=== PATIENT | female | born 1940 | race Caucasian/White ===

== ENCOUNTER 2020-04-28 07:25 | Outpatient (CLI) | payer OTHER, SELFPAY ==
--- NOTE | ~2020-04-28 | MM_ITS ---
EXAMINATION: MM screening jeet BI w mercedes HISTORY: Screening mammogram TECHNIQUE: Craniocaudal and mediolateral oblique 3-D tomosynthesis images were obtained and synthetic 2-D images were generated. CAD analysis was submitted and interpreted. COMPARISON: Comparison to multiple prior studies sequentially, with oldest reviewed study dated 05/20. BREAST PARENCHYMAL COMPOSITION: The breasts are heterogeneously dense, which may obscure small masses . FINDINGS: There is no evidence of suspicious mass, calcification, or architectural distortion to sugg est malignancy in either breast. There has been no suspicious interval change. IMPRESSION: 1. No mammographic evidence of malignancy. 2. Recommend routine screening mammography in one year. BI-RADS Category 1: Negative Reviewed, dictated and finalized at location A.
== END 2020-04-28 07:26 | disposition home or self-care (01) ==
PROVIDERS: PCP Emergency Medicine; Visit Provider Emergency Medicine
DX: Z12.31 Encounter for screening mammogram for malignant neoplasm of breast (principal)
CPT/HCPCS: 77063; 77067

== ENCOUNTER 2021-04-30 08:18 | Outpatient (CLI) | payer OTHER, SELFPAY ==
--- NOTE | ~2021-04-30 | MM_ITS ---
EXAMINATION: MM screening jeet BI w mercedes HISTORY: Screening mammogram TECHNIQUE: Craniocaudal and mediolateral oblique 3-D tomosynthesis images were obtained and synthetic 2-D images were generated. CAD analysis was submitted and interpreted. COMPARISON: 04/28/2020, 04/23/2019, 01/02/2018, 09/28/2016 bilateral digital screening mammogram examinatio ns BREAST PARENCHYMAL COMPOSITION: The breasts are heterogeneously dense, which may obscure small masses . FINDINGS: Scattered bilateral benign calcifications are again noted. There is no evidence of suspicio us mass, calcification, or architectural distortion to suggest malignancy in either breast. There has been no suspicious interval change. IMPRESSION: 1. No mammographic evidence of malignancy. 2. Recommend routine screening mammography in one year. BI-RADS Category 2: Benign finding(s). Reviewed, dictated and finalized at location A.
== END 2021-04-30 08:19 | disposition home or self-care (01) ==
LOC: ANHIMG 08:23
PROVIDERS: PCP Emergency Medicine; Visit Provider Emergency Medicine
DX: Z12.31 Encounter for screening mammogram for malignant neoplasm of breast (principal)
CPT/HCPCS: 77063; 77067

== ENCOUNTER 2021-08-25 10:31 | Outpatient (CLI) | payer OTHER, SELFPAY ==
--- NOTE | ~2021-08-25 | XR_ITS ---
XR foot LT 2V DATE: 08/25/2021 10:55 INDICATION: Pain at left great toe at the ball of the foot TECHNIQUE: AP and lateral views COMPARISON: None FINDINGS: Diffuse osteopenia. There is plantar calcaneal enthesopathy. Status post bunionectomy. No fracture, dislocation, periosteal reaction or bone destruction is detected. IMPRESSION: Osteopenia Status post bunionectomy Plantar calcaneal enthesopathy Reviewed, dictated and finalized at location A.
== END 2021-08-25 10:32 | disposition home or self-care (01) ==
LOC: ANHIMG 10:33
PROVIDERS: PCP Emergency Medicine; Visit Provider Emergency Medicine
DX: M85.872 Other specified disorders of bone density and structure, left ankle and foot (principal); Z98.890 Other specified postprocedural states; M77.32 Calcaneal spur, left foot
CPT/HCPCS: 73620

== ENCOUNTER 2022-01-24 09:45 | Emergency (ER) | payer OTHER, SELFPAY ==
[2022-01-24 09:56] VITALS: BP 164/108; PULSE 82; RESP 16; TEMP 37.3; O2SAT 100
[2022-01-24 10:02] VITALS: TEMP 36.8
--- NOTE | 2022-01-24 10:34 | ED.SKABFB ---
HPI - Skin/Abscess/Foreign Bdy General Chief complaint: Skin/Abscess/Foreign Body Stated complaint: facial redness Time Seen by Provider: 01/24/22 10:12 Source: patient Mode of arrival: ambulatory Limitations: no limitations History of Present Illness HPI narrative: This is a 81 year old female that presents to the ER for facial redness. Noted over the last 5 days. Does not report any known new soaps, lotions, detergents, or medications. The area is itchy and uncomfortable. It it also dry. Denies fevers or difficulty swallowing or breathing. Related Data Allergies Allergy/AdvReac Type Severity Reaction Status Date / Time PROPOXYPHENE HCL Allergy Unknown Unknown Uncoded 08/05/21 09:25 Review of Systems Review of Systems: CONSTITUTIONAL: Denies fever SKIN: Reports rash and itching. All systems reviewed & are unremarkable except as noted in HPI and below PMFSH Past Medical History Medical History (Updated 01/24/22 @ 10:53 by Tiffanie Ibarra PA-C) HLD (hyperlipidemia) Hypertension Memory problem Family History Family History Sibling Hypertension Family history of heart disease in male family member before age 55 Father Family history of heart disease in male family member before age 55 Acute myocardial infarction, Onset Age: 70 Mother Family history of heart disease in male family member before age 55 Family history of congestive heart failure, Onset Age: 69 Other Diabetes mellitus Family history of cardiovascular disease Social History Social History Smoking status: Never smoker Alcohol intake: never Exam Narrative: GENERAL: Well-appearing, well-nourished, and in no acute distress. HEAD: Normocephalic, atraumatic. EYES: EOMI. ENT: Nares clear, no rhinorrhea or epistaxis. Mucous membranes moist. Oropharynx without tonsillar hypertrophy exudate or other lesions. Bilateral TMs pearly lanza non-bulging NECK: Supple. No adenopathy or masses. CHEST: Clear to auscultation. No respiratory distress. No wheezes rales or rhonchi HEART: Regular rate and rhythm. No murmur heard. Normal peripheral pulses. EXTREMITIES: Normal range of motion. No edema. SKIN: Warm, dry. Erythematous, scaly rash present to the face, neck and upper chest NEURO: No focal deficits. Alert and oriented x3. PSYCH: Normal mood and affect Course Vital Signs Vital signs: Vital Signs Temperature 99.1 F 01/24/22 09:56 Pulse Rate 82 01/24/22 09:56 Respiratory Rate 16 01/24/22 09:56 Blood Pressure 164/108 H 01/24/22 09:56 Pulse Oximetry 100 01/24/22 09:56 Temperature 98.2 F 01/24/22 10:02 Pulse Rate 82 01/24/22 09:56 Respiratory Rate 16 01/24/22 09:56 Blood Pressure 164/108 H 01/24/22 09:56 Pulse Oximetry 100 01/24/22 09:56 MDM - Skin/Abscess/Foreign Bdy MDM Narrative Medical decision making narrative: Patient presents to the emergency department for an itchy rash noted over the last 5 days. She does not report any known contact irritants. The area is red, dry and scaly. Does appear consistent with some sort of possible contact dermatitis. Her lungs are clear. No mucous membrane involvement. Patient will be started on steroid cream and instructed on use of antihistamines. She is to follow-up with dermatology. She was given warnings to return to the ER Critical Care Time Critical Care Time Critical Care Time: No Discharge Plan Discharge Clinical Impression: Rash and nonspecific skin eruption Patient Disposition: Home, Self-Care Condition: Stable Instructions: Acute Rash (ED) Additional Instructions: Return to the emergency department if you experience fever, increasing redness and swelling of the area, difficulty swallowing, trouble breathing, or any other symptoms that are concerning to you Apply triamcinolone cream to the rash twice daily.
[2022-01-24] MEDS: methylPREDNISolone SOD SUCC 125 MG VIAL IV PUSH (10:54)
[2022-01-24] MEDS: diphenhydrAMINE HCl INJ 50 MG/ML VIAL 25 MG IV PUSH (10:54)
[2022-01-24] MEDS: FAMOTIDINE 20 MG/2 ML VIAL IV PUSH (10:54)
[2022-01-24 12:21] VITALS: BP 138/73; PULSE 62; RESP 18; O2SAT 98
== END 2022-01-24 12:22 | disposition home or self-care (01) ==
PROVIDERS: Emergency Provider Emergency Medicine; PCP Emergency Medicine
DX: E78.5 Hyperlipidemia, unspecified (principal); I10 Essential (primary) hypertension; R21 Rash and other nonspecific skin eruption
CPT/HCPCS: 96374; 96375; 99284; J1200; J2930

== ENCOUNTER 2023-10-01 09:09 | Outpatient (CLI) | payer OTHER, SELFPAY ==
[2023-10-01 11:05] LABS: Alanine Aminotransferase 15 U/L (6-35); Albumin Level 4.2 g/dL (3.5-5.1); Alkaline Phosphatase 140 U/L (38-126); Anion Gap 9 mmol/L (8-16); Aspartate Amino Transferase 23 U/L (14-36); Bilirubin,Total 0.6 mg/dL (0.2-1.3); Blood Urea Nitrogen 17 mg/dL (7-17); Calcium 9.1 mg/dL (8.4-10.2); Carbon Dioxide 25 mmol/L (22-30); Chloride 104 mmol/L (98-107); Cholesterol 271 mg/dL (0-200); Estimated Glomerular Filt Rate > 60; Glucose 87 mg/dL (65-110); HDL Direct 65 mg/dL; Potassium 4.2 mmol/L (3.4-5.0); Sodium 138 mmol/L (137-145); Triglycerides 122 mg/dL (<150)
[2023-10-01 11:16] LABS: LDL Cholesterol Direct 153 mg/dL
[2023-10-04 22:42] LABS: Vitamin D 1,25 (OH)2 Total 51 pg/mL (18-72); Vitamin D2 1,25 (OH)2 <8 pg/mL; Vitamin D3 1,25 (OH)2 51 pg/mL
== END 2023-10-01 09:10 | disposition home or self-care (01) ==
PROVIDERS: PCP Emergency Medicine; Visit Provider Emergency Medicine
DX: E78.5 Hyperlipidemia, unspecified (principal); E55.9 Vitamin D deficiency, unspecified
CPT/HCPCS: 36415; 80053; 80061; 82652

== ENCOUNTER 2024-05-18 06:57 | Day surgery (SDC) | payer OTHER, SELFPAY ==
[2024-05-08 13:09] VITALS: BMI 22.9
--- NOTE | 2024-05-17 11:02 | WPDANESEPPF ---
Anes - Initial Pre Proc Eval Procedure: Operation Date: 05/18/24 08:45 Proposed Procedures p Amputation Second Digit Left Foot - Kenneth Pozo Jr., DPM Date/Time: 05/17/24 11:02 Surgeon: Kenneth Pozo Jr., DPM Pre Op Diagnosis: Dislocated 2nd Digit Left Foot Patient Data Age: 83 Gender: F Height: 1.57 m Weight: 57 kg Allergies Allergy/AdvReac Type Severity Reaction Status Date / Time propoxyphene Allergy Intermediate Unknown Verified 05/08/24 12:58 Home Medications Medication Instructions Recorded Confirmed Type lisinopril 20 mg tablet See Rx Instructions .Route 03/30/23 05/08/24 Rx .COMPLEX #180 tabs simvastatin 10 mg tablet See Rx Instructions .Route 05/17/23 05/08/24 Rx .COMPLEX #90 tabs Results Review: All pre-operative results and documents have been reviewed as part of the pre-operative evaluation. [facility] Past Medical History Medical History Acute UTI Body mass index [BMI] 24.0-24.9, adult (10/23/15) History of fall HLD (hyperlipidemia) Hypersomnolence Hypertension Left shoulder pain Memory problem Neck mass Non-compliance with treatment Plantar fasciitis of left foot Pure hypercholesterolemia Thyroid nodule Unspecified lump in left breast, subareolar Family History Family History Sibling Hypertension Family history of heart disease in male family member before age 55 Father Family history of heart disease in male family member before age 55 Acute myocardial infarction, Onset Age: 70 Mother Family history of heart disease in male family member before age 55 Family history of congestive heart failure, Onset Age: 69 Other Diabetes mellitus Family history of cardiovascular disease Social History Social History Smoking status: Never smoker Second hand tobacco smoke exposure: No Alcohol intake: never Substance use: never Substance use type: does not use Current Housing: Decline to Answer Concerned About Future Housing: Decline to Answer Difficulty Paying Gas/Electric Bills: Decline to Answer Difficulty Paying for Meds: Decline to Answer Currently Unemployed: Decline to Answer Education: Decline to Answer Difficulty w/ Childcare or Family Care: Decline to Answer Living arrangements: with family Spiritual care concerns: No Anes - Eval Final PreProcedure Day of Procedure 05/17/24 11:02 Patient weight: normal Heart: regular rate and rhythm Lungs: clear to auscultation and normal air movement Airway: Mallampati scale class II Neurological: alert and oriented Last oral intake: >/= 8 hours ASA classification: II Emergent: no Anesthetic plan: proceed Anesthesia type and monitoring: general GIVS and standard monitoring Results Review: All pre-operative results and documents have been reviewed as part of the pre-operative evaluation. Informed Consent: The patient's anesthetic plan and its attendant risks and benefits were discussed with the patient/family/POA. Questions were solicited and answers provided to the satisfaction of the patient/family/POA.
--- NOTE | 2024-05-18 07:11 | WPDHPUPDATE1 ---
History and Physical Update Update Date/Time: 05/18/24 07:11 History and Physical has been reviewed, including an updated exam of the patient. There are NO changes in the patient's condition. Risks, benefits, and alternatives have been discussed and questions answered. Patient agrees to proceed with procedure.
[2024-05-18 07:25] VITALS: BP 171/86; PULSE 72; RESP 14; TEMP 36.8; O2SAT 99
[2024-05-18] MEDS: LACTATED RINGERS 1,000 ML 30 ML IV CONT (07:37)
--- NOTE | 2024-05-18 09:36 | SUR.PREOP ---
dr Ryan interviewing patient for upcoming procedure- pt states that she is having discomfort in chest - twelve lead ekg obtained vitals taken --blood pressure 195/95 65 heart rate- 100% oxygen -15 respiration- non-specific results obtained- dr. Anderson and Dr Pozo opt to cancel surgery and sent patient to [facility]. Patient describes pain as tightening and wont give a number to rate it. patient's spouse involved in discussion of condition and both declined ambulance to take her to emergence room. dr. woodsonled stressing the importance of trained rn medical inpatient services to assist to hospital and both continued to refuse- Dr. Pozo informed of their decision and spoke with patient and spouse about importance of taking ambulance to ed for patient safety- they opted to leave facility [facility].
[2024-05-18 09:39] VITALS: BP 175/90; PULSE 64; RESP 16; O2SAT 100
--- NOTE | 2024-05-18 09:41 | WPDANESPN ---
Anes - Prog Note Post-Op Date/Time: 05/18/24 09:41 Cardiovascular status: other (murmur - chest pain) Respiratory status: normal Airway patency: baseline Mental status: baseline Post-Op hydration status: normal Vital Signs: Last Vital Signs Temp 36.8 C 05/18/24 07:25 Pulse 72 05/18/24 07:25 Resp 14 05/18/24 07:25 BP 171/86 H 05/18/24 07:25 Pulse Ox 99 05/18/24 07:25 O2 Del Method Room Air 05/18/24 07:25 Pain Score (VAS): 5 - chest pain Post-procedural complaints: none Other Findings: During Pre op interview patient started complaining of left sided chest pain, she said pain radiated to her throat and she felt slightly short of breath. She has never had this before, denies prior GERD symptoms or current anxiety. Pain is not reproducible with palpation. EKG says cannot rule out septal infarct. Recommended patient be transferred to [place] ED by ambulance. Patient refused ambulance and wishes to have spouse drive her. Patient signing out AMA
--- NOTE | 2024-05-18 10:17 | SUR.PREOP ---
patient ambulated to rest room prior to leaving- she stated that all pain/tightening had subsided
--- NOTE | 2024-05-18 10:23 | SUR.PREOP ---
patient left facility via wheelchair at [phone]
--- NOTE | 2024-05-19 15:08 | WPDHPUPDATE1 ---
History and Physical Update Update Date/Time: 05/19/24 15:08 History and Physical has been reviewed, including an updated exam of the patient. There are NO changes in the patient's condition. Patient had chest pain during her pre-op interview with Anesthesia prior to surgery. Surgery canceled. She was is no visible distress. Recommendation was made for ambulance transfer to ER at [facility] for further evaluation. The refused ambulance transfer against medical advice. Form signed as per protocol. The and patient would rather drive to [place] to avoid ambulance cost.
== END 2024-05-18 06:58 | disposition home or self-care (01) ==
LOC: ASC 07:01
PROVIDERS: PCP Emergency Medicine; Visit Provider Podiatrist Foot & Ankle Surgery
PROC: (CPT 28810; principal; 2024-05-18 08:45)
DX: M20.42 Other hammer toe(s) (acquired), left foot (principal)
CPT/HCPCS: 28810

== ENCOUNTER 2024-08-06 09:24 | Outpatient (CLI) | payer OTHER, SELFPAY ==
[2024-08-06 10:06] LABS: Alanine Aminotransferase 12 U/L (6-35); Albumin Level 4.1 g/dL (3.5-5.1); Alkaline Phosphatase 132 U/L (38-126); Anion Gap 2 mmol/L (4-12); Aspartate Amino Transferase 23 U/L (14-36); Bilirubin,Total 0.6 mg/dL (0.2-1.3); Blood Urea Nitrogen 17 mg/dL (7-17); Calcium 9.1 mg/dL (8.4-10.2); Carbon Dioxide 29 mmol/L (22-30); Chloride 103 mmol/L (98-107); Cholesterol 221 mg/dL (0-200); Estimated Glomerular Filt Rate 60; Glucose 98 mg/dL (65-110); HDL Direct 59 mg/dL; Potassium 5.1 mmol/L (3.4-5.0); Sodium 134 mmol/L (137-145); Triglycerides 87 mg/dL (<150)
[2024-08-06 10:17] LABS: LDL Cholesterol Direct 126 mg/dL
[2024-08-06 10:41] LABS: Vitamin D 25 Hydroxy 31.2 ng/mL
== END 2024-08-06 09:25 | disposition home or self-care (01) ==
LOC: ANHLAB 09:26
PROVIDERS: PCP Emergency Medicine; Visit Provider Emergency Medicine
DX: E78.5 Hyperlipidemia, unspecified (principal); E55.9 Vitamin D deficiency, unspecified
CPT/HCPCS: 36415; 80053; 80061; 82306